=== PATIENT | male | born 1940 | race African-American/Black ===

== ENCOUNTER 2019-11-14 00:56 | Inpatient (IN) | payer OTHER ==
[~2019-11-14] VITALS: Ht 172.7 cm; Wt 92.6 kg
[2019-11-14] VITALS (27 sets, daily range): BP systolic 55–132; BP diastolic 36–91
[2019-11-14 05:38] LABS: EOSINOPHILS % 0.6 % (0.0-5.0); HEMATOCRIT. 46.6 % (42.0-52.0); HEMOGLOBIN. 15.3 g/dL (14.0-18.0); LYMPHOCYTES % 21.1 % (20.0-50.0); MEAN CORPUSCULAR HEMOGLOBIN 31.6 pg (28.0-32.0); MEAN CORPUSCULAR VOLUME 96.1 fL (80.0-94.0); MEAN PLATELET VOLUME 9.6 fl (7.4-10.4); MONOCYTES % 10.7 % (2.0-8.0); NEUTROPHILS % 66.6 % (40.0-76.0); PLATELET 194 x1000/uL (130-400); RED BLOOD CELL COUNT 4.85 mill/uL (4.7-6.1); RED CELL DISTRIBUTION WIDTH 12.6 % (11.6-14.6)
[2019-11-14] MEDS ORDERED: ONDANSETRON HCL 4MG/2ML INJ IV PRN (06:15)
[2019-11-14] MEDS ORDERED: ACETAMINOPHEN 325MG TABLET PO PRN (06:15)
[2019-11-14] MEDS ORDERED: INSULIN REGULAR (HUMULIN R) 300UNITS/3ML IV ONE (06:15)
[2019-11-14] MEDS ORDERED: CLONIDINE 0.1MG TABLET PO PRN (06:15)
[2019-11-14] MEDS ORDERED: DEXTROSE 50% WATER 50ML SYRINGE IV PRN ×3 (06:15→22:30)
[2019-11-14] MEDS ORDERED: MORPHINE SULFATE 2 MG/ML CPJ (NOT FOR IM USE) IV PRN (06:15)
[2019-11-14] MEDS ORDERED: SODIUM CHLORIDE 0.9% 1,000 ML IV ONE (06:15)
[2019-11-14] MEDS ORDERED: INSULIN REGULAR (DRIP) 100 UNITS in SODIUM CHLORIDE 0.9% 100 ML IV SCH (06:15)
[2019-11-14] MEDS: BLOOD SUGAR DIAGNOSTIC STRIP TEST SCH ×17 (06:53→23:47)
[2019-11-14] MEDS: SODIUM CHLORIDE 0.45% 1,000 ML IV SCH ×3 (07:05→11:31)
[2019-11-14 07:09] LABS: CLARITY URINE CLEAR (CLEAR); COLOR URINE YELLOW (YELLOW); KETONES URINE 1+ (NEGATIVE); LEUKOCYTE ESTERASE URINE NEGATIVE (NEGATIVE); NITRITE URINE NEGATIVE (NEGATIVE); OCCULT BLOOD URINE TRACE (NEGATIVE); PROTEIN URINE NEGATIVE (NEGATIVE); SPECIFIC GRAVITY URINE 1.028 (1.005-1.030); UROBILINOGEN URINE 0.2 E.U./dL (0.2-1.0)
[2019-11-14 12:26] LABS: BG BASE EXCESS 3.4 mmol/L (-2.0-2.0); BG CARBOXYHEMOGLOBIN 0.6 % (0.5-1.5); BG DEOXYHEMOGLOBIN 4.2 % (0.0-5.0); BG FRACTION INSPIRED OXYGEN 21; BG HCO3 ACT 27.2 mmol/L (22.0-26.0); BG METHEMOGLOBIN 0.3 % (0.0-1.5); BG OXYGEN SATURATION 95.8 % (92.0-98.5); BG OXYHEMOGLOBIN 94.9 % (94.0-97.0); BG PH 7.462 (7.350-7.450); BG PO2 77.6 mmHg (75.0-100.0); BG SAMPLE SITE RIGHT BRACHIAL; BG VENT MODE ROOM AIR
[2019-11-14] MEDS ORDERED: BISACODYL 10MG SUPP PR PRN (14:45)
[2019-11-14] MEDS ORDERED: IPRATROPIUM/ALBUTEROL 0.5-3(2.5)MG/3ML NEB HHN PRN (14:45)
[2019-11-14] MEDS ORDERED: ACETAMINOPHEN 650MG SUPP PR PRN (14:45)
[2019-11-14] MEDS ORDERED: DIPHENHYDRAMINE 50MG/ML VIAL IV PRN (14:45)
[2019-11-14] MEDS ORDERED: LACTULOSE 20G/30ML UDC PO PRN (14:45)
[2019-11-14 14:56] LABS: OPIATES URINE SCREEN NEGATIVE (NEGATIVE); PHENCYCLIDINE URINE SCREEN NEGATIVE (NEGATIVE)
[2019-11-14 14:57] LABS: CANNABINOID URINE SCREEN NEGATIVE (NEGATIVE); METHADONE URINE SCREEN NEGATIVE (NEGATIVE)
[2019-11-14 15:00] LABS: *COCAINE SCREEN URINE NEGATIVE (NEGATIVE)
[2019-11-14 15:04] LABS: *BENZODIAZEPINES SCREEN URINE NEGATIVE (NEGATIVE)
[2019-11-14 15:05] LABS: *AMPHETAMINES SCREEN URINE NEGATIVE (NEGATIVE)
[2019-11-14 15:07] LABS: *BARBITURATES SCREEN URINE NEGATIVE (NEGATIVE)
[2019-11-14] MEDS: FAMOTIDINE 20MG/2ML VIAL IV SCH (15:20)
[2019-11-14 15:41] LABS: CHLORIDE 83 mEq/L (98-107)
[2019-11-14 15:43] LABS: INR 1.8; PROTHROMBIN TIME 18.6 sec (9.6-11.0)
[2019-11-14 15:48] LABS: LDL CHOLESTEROL 25 mg/dL (5-100)
[2019-11-14 15:49] LABS: HDL CHOLESTEROL 11 mg/dL (40-59)
[2019-11-14] MEDS ORDERED: ENOXAPARIN 30MG/0.3ML SYR SUBCUT SCH (16:00)
[2019-11-14 16:01] LABS: PHOSPHORUS 0.6 mg/dL (2.5-4.9)
[2019-11-14] MEDS ORDERED: PNEUMOCOCCAL 23-VAL P-SAC VAC 0.5 ML IM ONE (17:00)
[2019-11-14] MEDS: DEXT 5%/0.45% NACL 1000ML 1,000 ML IV SCH (17:42)
[2019-11-14 19:39] LABS: CHLORIDE 94 mEq/L (98-107)
[2019-11-14] MEDS ORDERED: SODIUM CHLORIDE 0.9% 250 ML IV ONE (22:30)
[2019-11-14] MEDS ORDERED: NOREPINEPHRINE 16 MG in DEXT 5% WATER 234 ML IV PRN (23:30)
[2019-11-14] MEDS: INSULIN LISPRO 100 UNITS/ML SUBCUT SCH (23:45)
[2019-11-15] VITALS (32 sets, daily range): BP systolic 66–121; BP diastolic 42–75
[2019-11-15] MEDS: BLOOD SUGAR DIAGNOSTIC STRIP TEST SCH ×6 (00:15→21:37)
[2019-11-15] MEDS: INSULIN GLARGINE UD 100 UNITS/ML SYR SUBCUT SCH ×3 (00:50→21:10)
[2019-11-15] MEDS: DEXT 5%/0.45% NACL 1000ML 1,000 ML IV SCH ×2 (01:50→02:26)
[2019-11-15] MEDS: FAMOTIDINE 20MG/2ML VIAL IV SCH (08:38)
[2019-11-15] MEDS: HEPARIN 5000 UNITS/ML VIAL SUBCUT SCH ×2 (08:38→21:09)
[2019-11-15] MEDS: INSULIN LISPRO 100 UNITS/ML SUBCUT SCH ×4 (08:39→21:00)
[2019-11-15] MEDS ORDERED: SODIUM CHL 0.45% + KCL 20MEQ/L 1,000 ML IV SCH (10:00)
[2019-11-15] MEDS ORDERED: SODIUM CHLORIDE 0.9% 250 ML IV ONE (11:45)
[2019-11-15] MEDS ORDERED: INSULIN LISPRO 100 UNITS/ML SUBCUT NR ×2 (12:30→17:45)
[2019-11-15] MEDS ORDERED: SODIUM CHLORIDE 0.9% 250 ML IV PRN (12:30)
[2019-11-15] MEDS: SODIUM CHLORIDE 0.9% 1,000 ML IV SCH ×2 (12:48→22:55)
[2019-11-15 13:08] LABS: HEMATOCRIT. 40.1 % (42.0-52.0); HEMOGLOBIN. 13.9 g/dL (14.0-18.0); MEAN CORPUSCULAR HEMOGLOBIN 31.8 pg (28.0-32.0); MEAN CORPUSCULAR VOLUME 91.9 fL (80.0-94.0); MEAN PLATELET VOLUME 9.3 fl (7.4-10.4); PLATELET 231 x1000/uL (130-400); RED BLOOD CELL COUNT 4.36 mill/uL (4.7-6.1); RED CELL DISTRIBUTION WIDTH 12.9 % (11.6-14.6)
[2019-11-15] MEDS ORDERED: SODIUM CHLORIDE 0.9% 500 ML IV ONE (16:30)
[2019-11-15] MEDS: MIDODRINE HCL 5MG TABLET PO SCH (16:53)
[2019-11-15] MEDS: TAMSULOSIN HCL 0.4MG SR CAPSULE PO SCH (21:08)
[2019-11-16] VITALS (27 sets, daily range): BP systolic 92–167; BP diastolic 49–82
[2019-11-16] MEDS: BLOOD SUGAR DIAGNOSTIC STRIP TEST SCH ×6 (00:42→20:10)
[2019-11-16] MEDS: INSULIN LISPRO 100 UNITS/ML SUBCUT SCH ×6 (00:42→20:10)
[2019-11-16 05:52] LABS: HEMATOCRIT 38.5 % (42.0-52.0); HEMOGLOBIN 12.9 g/dL (14.0-18.0); MEAN CORPUSCULAR HEMOGLOBIN 31.3 pg (28.0-32.0); MEAN CORPUSCULAR VOLUME 93.3 fL (80.0-94.0); PLATELET 204 x1000/uL (130-400); RED BLOOD CELL COUNT 4.13 mill/uL (4.7-6.1); RED CELL DISTRIBUTION WIDTH 13.1 % (11.6-14.6)
[2019-11-16] MEDS: FAMOTIDINE 20MG TABLET PO SCH (08:08)
[2019-11-16] MEDS: MIDODRINE HCL 5MG TABLET PO SCH (08:08)
[2019-11-16] MEDS: HEPARIN 5000 UNITS/ML VIAL SUBCUT SCH ×2 (08:09→20:09)
[2019-11-16] MEDS: SODIUM CHLORIDE 0.9% 1,000 ML IV SCH ×2 (09:07→19:30)
[2019-11-16] MEDS: INSULIN GLARGINE UD 100 UNITS/ML SYR SUBCUT SCH ×2 (09:09→21:47)
[2019-11-16] MEDS: TAMSULOSIN HCL 0.4MG SR CAPSULE PO SCH (20:09)
[2019-11-17] VITALS (18 sets, daily range): BP systolic 102–159; BP diastolic 38–122
[2019-11-17] MEDS: SODIUM CHLORIDE 0.9% 1,000 ML IV SCH ×2 (05:03→18:09)
[2019-11-17 06:13] LABS: BASOPHILS % 1.5 % (0.0-2.0); EOSINOPHILS % 2.5 % (0.0-5.0); HEMATOCRIT. 37.7 % (42.0-52.0); HEMOGLOBIN. 12.5 g/dL (14.0-18.0); LYMPHOCYTES % 26.8 % (20.0-50.0); MEAN CORPUSCULAR VOLUME 93.8 fL (80.0-94.0); MEAN PLATELET VOLUME 9.2 fl (7.4-10.4); NEUTROPHILS % 59.2 % (40.0-76.0); PLATELET 193 x1000/uL (130-400); RED BLOOD CELL COUNT 4.02 mill/uL (4.7-6.1); RED CELL DISTRIBUTION WIDTH 12.7 % (11.6-14.6)
[2019-11-17] MEDS: BLOOD SUGAR DIAGNOSTIC STRIP TEST SCH ×4 (07:56→21:45)
[2019-11-17] MEDS: FAMOTIDINE 20MG TABLET PO SCH (08:26)
[2019-11-17] MEDS: INSULIN LISPRO 100 UNITS/ML SUBCUT SCH ×4 (08:27→21:45)
[2019-11-17] MEDS: HEPARIN 5000 UNITS/ML VIAL SUBCUT SCH ×2 (08:27→21:43)
[2019-11-17] MEDS: INSULIN GLARGINE UD 100 UNITS/ML SYR SUBCUT SCH ×2 (10:29→21:45)
[2019-11-17 12:51] LABS: PROTHROMBIN TIME 10.9 sec (9.6-11.0)
[2019-11-17] MEDS: TAMSULOSIN HCL 0.4MG SR CAPSULE PO SCH (21:43)
[2019-11-18] VITALS: BP 108/62
[2019-11-18] MEDS: SODIUM CHLORIDE 0.9% 1,000 ML IV SCH ×2 (00:48→10:30)
[2019-11-18 04:00] VITALS: BP 132/69
[2019-11-18] MEDS: BLOOD SUGAR DIAGNOSTIC STRIP TEST SCH ×2 (06:57→12:28)
[2019-11-18] MEDS: INSULIN LISPRO 100 UNITS/ML SUBCUT SCH ×2 (07:20→13:00)
[2019-11-18 08:00] VITALS: BP_SYST 114; BP_SYST 131; BP_SYST 145; BP_DIAS 66; BP_DIAS 69; BP_DIAS 75
[2019-11-18 08:39] LABS: HEMATOCRIT 36.9 % (42.0-52.0); HEMOGLOBIN 12.4 g/dL (14.0-18.0); MEAN CORPUSCULAR HEMOGLOBIN 31.3 pg (28.0-32.0); MEAN CORPUSCULAR VOLUME 92.8 fL (80.0-94.0); PLATELET 213 x1000/uL (130-400); RED BLOOD CELL COUNT 3.98 mill/uL (4.7-6.1); RED CELL DISTRIBUTION WIDTH 12.9 % (11.6-14.6)
[2019-11-18] MEDS: FAMOTIDINE 20MG TABLET PO SCH (08:58)
[2019-11-18] MEDS: HEPARIN 5000 UNITS/ML VIAL SUBCUT SCH (08:58)
[2019-11-18] MEDS: INSULIN GLARGINE UD 100 UNITS/ML SYR SUBCUT SCH (10:24)
[2019-11-18] MEDS ORDERED: INSLIS SUBCUT (11:26)
[2019-11-18] MEDS ORDERED: FLAS1EAC2 TP (11:26)
[2019-11-18] MEDS ORDERED: FAMO-135 PO (11:26)
[2019-11-18] MEDS ORDERED: LANC1COM2 MC (11:26)
[2019-11-18] MEDS ORDERED: INSU100I28 SQ (11:26)
[2019-11-18 12:00] VITALS: BP 130/80
[2019-11-18 14:09] VITALS: BP 130/80
[2019-11-18 15:44] VITALS: BP 128/80
== END 2019-11-18 16:20 | disposition home or self-care (01) | DRG 637 ==
LOC: ER 00:56 → CVICU 06:28 → EDBEDREQ 08:17 → ENRESERV 09:54 → ER 11:13 → 6WST 11-17 11:17
PROVIDERS: ADMIT Internal Medicine; ATTEND Internal Medicine
DX: E11.10 Type 2 diabetes mellitus with ketoacidosis without coma (principal); G93.41 Metabolic encephalopathy; N17.9 Acute kidney failure, unspecified; E87.1 Hypo-osmolality and hyponatremia; D18.03 Hemangioma of intra-abdominal structures; N40.0 Benign prostatic hyperplasia without lower urinary tract symptoms; Z60.2 Problems related to living alone; I12.9 Hypertensive chronic kidney disease with stage 1 through stage 4 chronic kidney disease, or unspecified chronic kidney disease; E11.22 Type 2 diabetes mellitus with diabetic chronic kidney disease; N18.9 Chronic kidney disease, unspecified; Z03.818 Encounter for observation for suspected exposure to other biological agents ruled out; Z91.11 Patient's noncompliance with dietary regimen
CPT/HCPCS: 36415; 36600; 71045; 74176; 76700; 80048; 80053; 80061; 80305; 81003; 82010; 82105; 82375; 82378; 82805; 82962; 83036; 83735; 84100; 84145; 84153; 84439; 84443; 85025; 85027; 90732; 93005; 93306; 93970; 97162; 99285; J1644; J1650; J1815; J3480; J3490; J7030; J7050; G0103; U0003-CS